=== PATIENT | male | born 1990 | race Caucasian/White ===

== ENCOUNTER 2016-08-14 22:28 | Emergency (ER) | payer OTHER ==
[~2016-08-14] VITALS: Ht 185.4 cm; Wt 79.0 kg
[2016-08-14 22:32] VITALS: BP 154/98; PULSE 120; RESP 20; TEMP 98; O2SAT 98
[2016-08-14 22:38] VITALS: BP 156/103; PULSE 120; RESP 20; O2SAT 98
--- NOTE | 2016-08-14 23:02 | PD ---
HPI Chief Complaint: Psychiatric Symptoms Time Seen by Provider: 22:58 Travel History International Travel<30 days: No Contact w/Intl Traveler<30days: No Traveled to known affect area: No History of Present Illness HPI 26-year-old male presents to the emergency department voluntarily for help regarding Dilaudid and cocaine abuse. Patient also has been having episodes of depression. Patient states he has a family history of mental health/depression issues with father killing himself when the patient was 5 years old. Patient's brother is currently in a penit[facility]iary house detox program. Patient states he contacted his brother who encouraged him to come to the emergency department voluntarily to seek help. Patient denies any current plan to harm himself all over the past 2 years has thought if he would harm himself he would probably hang himself. Patient states has no plan to hurt himself at this time. Patient presents seeking resources to help him with his depression and substance use. Patient states he is tired of getting high. Patient denies other medical history. Patient takes no prescription medications. Last use of Dilaudid and cocaine reportedly yesterday. PFSH Past Medical History Narrative Medical Depression, substance useDilaudid, cocaine, tobacco use; nursing notes reviewed Medical History: Denies Significant Hx Tetanus Vaccination: Unknown Influenza Vaccination: No Past Surgical History Surgical History: No Previous Surgery Social History Alcohol Use: No Tobacco Use: No (quit 2 months ago ) Substance Use: Yes (shoots up dilaudid, coccaine ) Allergies-Medications (Allergen,Severity, Reaction): Coded Allergies: No Known Allergies (Unverified , 08/14/16) Reported Meds & Prescriptions Reported Meds & Active Scripts Active No Active Prescriptions or Reported Medications Review of Systems Except as stated in HPI: all other systems reviewed are Neg General / Constitutional: No: Fever, Chills HENT: No: Congestion Cardiovascular: No: Chest Pain or Discomfort Respiratory: No: Shortness of Breath Gastrointestinal: Positive: Vomiting (occassional), No: Nausea, Diarrhea, Abdominal Pain Genitourinary: No: Urgency, Frequency, Dysuria Musculoskeletal: No: Myalgias, Arthralgias Skin: No Rash Neurologic: No: Weakness, Dizziness, Syncope, Focal Abnormalities, Coordination Problem Psychiatric: Positive: Depression, Suicidal Ideations (occassionally), No: Anxiety Hematologic/Lymphatic: No: Lymph Node Enlargement Physical Exam Narrative GENERAL: Well-developed well-nourished male in no acute distress no respiratory distress; GCS 15 SKIN: Warm and dry. HEAD: Atraumatic. Normocephalic. EYES: Pupils equal and round. No scleral icterus. No injection or drainage. ENT: No nasal bleeding or discharge. Mucous membranes pink and moist. NECK: Trachea midline. No JVD. CARDIOVASCULAR: Regular rate and rhythm. RESPIRATORY: No accessory muscle use. Clear to auscultation. Breath sounds equal bilaterally. GASTROINTESTINAL: Abdomen soft, non-tender, nondistended. Hepatic and splenic margins not palpable. MUSCULOSKELETAL: Extremities without clubbing, cyanosis, or edema. No obvious deformities. NEUROLOGICAL: Awake and alert. No obvious cranial nerve deficits. Motor grossly within normal limits. Five out of 5 muscle strength in the arms and legs. Normal speech. PSYCHIATRIC: Appropriate mood and affect; insight and judgment normal. Data Data Last Documented VS Vital Signs Date Time Temp Pulse Resp B/P Pulse Ox O2 Delivery O2 Flow Rate FiO2 08/14/16 22:38 120 20 156/103 98 Room Air 08/14/16 22:32 98.0 Orders Complete Blood Count With Diff (08/14/16 22:58) Comprehensive Metabolic Panel (08/14/16 22:58) Urinalysis - C+S If Indicated (08/14/16 22:58) Psych Screen (08/14/16 22:58) Drug Screen, Random Urine (08/14/16 22:58) Alcohol (Ethanol) (08/14/16 22:58) Salicylates (Aspirin) (08/14/16 22:58) Tylenol (Acetaminophen) (08/14/16 22:58) Magnesium (Mg) (08/14/16 22:58) Labs Laboratory Tests Test 08/14/16 23:00 White Blood Count 11.4 TH/MM3 Red Blood Count 5.32 MIL/MM3 Hemoglobin 15.0 GM/DL Hematocrit 45.2 % Mean Corpuscular Volume 84.9 FL Mean Corpuscular Hemoglobin 28.2 PG Mean Corpuscular Hemoglobin 33.2 % Concent Red Cell Distribution Width 13.5 % Platelet Count 261 TH/MM3 Mean Platelet Volume 8.1 FL Neutrophils (%) (Auto) 72.9 % Lymphocytes (%) (Auto) 20.4 % Monocytes (%) (Auto) 5.7 % Eosinophils (%) (Auto) 0.6 % Basophils (%) (Auto) 0.4 % Neutrophils # (Auto) 8.3 TH/MM3 Lymphocytes # (Auto) 2.3 TH/MM3 Monocytes # (Auto) 0.7 TH/MM3 Eosinophils # (Auto) 0.1 TH/MM3 Basophils # (Auto) 0.0 TH/MM3 CBC Comment DIFF FINAL Differential Comment Urine Color DARK-YELLOW Urine Turbidity HAZY Urine pH 5.5 Urine Specific [place] 1.033 Urine Protein 30 mg/dL Urine Glucose (UA) NEG mg/dL Urine Ketones NEG mg/dL Urine Occult Blood NEG Urine Nitrite NEG Urine Bilirubin NEG Urine Urobilinogen 2.0 MG/DL Urine Leukocyte Esterase NEG Urine WBC 2 /hpf Urine Squamous Epithelial 1 /hpf Cells Urine Mucus MANY /lpf Microscopic Urinalysis Comment CULT NOT INDICATED Sodium Level 142 MEQ/L Potassium Level 3.5 MEQ/L Chloride Level 108 MEQ/L Carbon Dioxide Level 25.7 MEQ/L Anion Gap 8 MEQ/L Blood Urea Nitrogen 17 MG/DL Creatinine 0.99 MG/DL Estimat Glomerular Filtration 91 ML/MIN Rate Random Glucose 106 MG/DL Calcium Level 8.9 MG/DL Magnesium Level 2.3 MG/DL Total Bilirubin 1.5 MG/DL Aspartate Amino Transf 58 U/L (AST/SGOT) Alanine Aminotransferase 189 U/L (ALT/SGPT) Alkaline Phosphatase 75 U/L Total Protein 7.2 GM/DL Albumin 4.1 GM/DL Salicylates Level LESS THAN 1.7 MG/DL Acetaminophen Level LESS THAN 2.0 MCG/ML Ethyl Alcohol Level LESS THAN 3 MG/DL Urine Opiates Screen NEG Urine Barbiturates Screen NEG Urine Amphetamines Screen NEG Urine Benzodiazepines Screen NEG Urine Cocaine Screen POS Urine Cannabinoids Screen NEG MDM Medical Decision Making Medical Screen Exam Complete: Yes Emergency Medical Condition: Yes Medical Record Reviewed: Yes Interpretation(s) CBC & BMP Diagram 08/14/16 23:00 Vital Signs Date Time Temp Pulse Resp B/P Pulse Ox O2 Delivery O2 Flow Rate FiO2 08/14/16 22:38 120 20 156/103 98 Room Air 08/14/16 22:32 98.0 120 20 154/98 98 Urine drug screen: Positive for cocaine Serum alcohol: Less than 3, not elevated acetaminophen: Less than 2.0, not elevated; salicylate level less than 1.7, not elevated Differential Diagnosis Polysubstance abuse, mood disorder, depression, electrolyte disturbance Narrative Course Specimens collected and sent for resulting Labs resulted found to be grossly within normal range except for mild nonspecific elevation of LFTs and urine drug screen positive for cocaine Patient remains cooperative and voluntary; patient informed of lab results and awaiting psych screen Diagnosis Primary Impression: Cocaine abuse Additional Impression: Elevated LFTs Scripts No Active Prescriptions or Reported Meds Steff Diaz MD August 14, 2016 23:02
[2016-08-14 23:15] LABS: AUTOMATED NEUTROPHIL # 8.3 TH/MM3 (1.8-7.7); BASOPHIL % 0.4 % (0.0-2.0); EOSINOPHIL # 0.1 TH/MM3 (0-0.4); EOSINOPHIL % 0.6 % (0.0-4.0); HEMATOCRIT 45.2 % (39.0-51.0); HEMO FLAGS DIFF FINAL; LYMPH % 20.4 % (9.0-44.0); LYMPHOCYTE # 2.3 TH/MM3 (1.0-4.8); MEAN CELL VOLUME 84.9 FL (80.0-100.0); MEAN CORPUSCULAR HEMOGLOBIN 28.2 PG (27.0-34.0); MEAN CORPUSCULAR HGB CONC 33.2 % (32.0-36.0); MONO % 5.7 % (0.0-8.0); NEUT % 72.9 % (16.0-70.0); PLATELET COUNT 261 TH/MM3 (150-450); RED BLOOD COUNT 5.32 MIL/MM3 (4.50-5.90); RED CELL DISTRIBUTION WIDTH 13.5 % (11.6-17.2); WHITE BLOOD COUNT 11.4 TH/MM3 (4.0-11.0)
[2016-08-14 23:30] LABS: ALT (GPT) 189 U/L (12-78); ANION GAP 8 MEQ/L (5-15); AST (GOT) 58 U/L (15-37); BICARBONATE 25.7 MEQ/L (21.0-32.0); BLOOD UREA NITROGEN 17 MG/DL (7-18); CHLORIDE 108 MEQ/L (98-107); GLOMERULAR FILTRATION RATE 91 ML/MIN (>89); MAGNESIUM 2.3 MG/DL (1.5-2.5); POTASSIUM 3.5 MEQ/L (3.5-5.1); SODIUM (NA) 142 MEQ/L (136-145)
[2016-08-14 23:32] LABS: ALKALINE PHOSPHATASE 75 U/L (45-117); TOTAL BILIRUBIN ADULT 1.5 MG/DL (0.2-1.0)
[2016-08-14 23:33] LABS: ACETAMINOPHEN LESS THAN 2.0 MCG/ML (10.0-30.0)
[2016-08-14 23:48] LABS: AMPHETAMINE, URINE NEG (NEG); BARBITURATES, URINE NEG (NEG); COCAINE, URINE POS (NEG)
[2016-08-14 23:50] LABS: BLOOD, URINE NEG (NEG); COMMENT (UR) CULT NOT INDICATED; CULTURE IF INDICATED CULT NOT INDICATED; GLUCOSE,URINE NEG (NEG); KETONE, URINE NEG (NEG); MUCUS URINE MANY /lpf (OCC); NITRITE,URINE NEG (NEG); PH, URINE 5.5 (5.0-8.5); SQUAMOUS EPITHELIAL CELL URINE 1 /hpf (0-5); URINE COLOR DARK-YELLOW (YELLW/STRAW)
[2016-08-15 04:32] VITALS: BP 112/58; PULSE 70; RESP 18; TEMP 98; O2SAT 99
[2016-08-15 06:24] VITALS: BP 116/60; PULSE 71; RESP 18; O2SAT 98
[2016-08-15 11:39] VITALS: BP 110/57; PULSE 67; RESP 18; O2SAT 98
== END 2016-08-15 18:11 | disposition home or self-care (01) ==
LOC: NEPC 22:28 → NEPJ 08-15 18:11
DX: F32.9 Major depressive disorder, single episode, unspecified (principal); F14.10 Cocaine abuse, uncomplicated; R79.89 Other specified abnormal findings of blood chemistry; Z87.891 Personal history of nicotine dependence
CPT/HCPCS: 80053; 80307; 81001; 83735; 85025; 99282